=== PATIENT | male | born 1980 | race Caucasian/White ===

== ENCOUNTER 2019-04-08 07:07 | Emergency (ER) | payer SELFPAY ==
[2019-04-08] MEDS ORDERED: PREDNISONE 20 MG TABLET PO ONE (08:46)
[2019-04-08] MEDS ORDERED: IPRATROPIUM/ALBUTEROL 0.5-2.5 MG/3 ML AMPUL NEB ONE (08:46)
--- NOTE | 2019-04-08 08:48 | ER Document Report ---
ED General - General Chief Complaint: Medication Refill Stated Complaint: SHORTNESS OF BREATH Time Seen by Provider: 04/08/19 08:20 Primary Care Provider: ALEJANDRA AARON MD [ACTIVE STAFF] - Follow up in 1 week Mode of Arrival: Ambulatory Information source: Patient Notes: 38-year-old male with history of asthma COPD presents emergency department with reports of worsening symptoms for the past year since he moved back to [place]. Reports increased difficulty breathing for the past week. Patient gives history of asthma all his life. Reports he has moved around the country. He did stockpile on medication such as Advair DuoNeb albuterol inhalers. He r eports recently he ran out of albuterol nebs and his albuterol inhaler. He does have some Atrovent neb treatments. He reports it does not work as well by itself. He reports he has noticed an increase shortness of breath with any exertion. He also has had some chest pain for the past week mostly on the left side. Reports it does make him feel sweaty. Denies fever vomiting diarrhea. Denies fever vomiting diarrhea. TRAVEL OUTSIDE OF THE [place] IN LAST 30 DAYS: No - HPI Onset: Other Onset/Duration: Persistent, Worse Quality of pain: Cramping - Related Data Allergies/Adverse Reactions: clindamycin Adverse Reaction (Intermediate, Verified 04/08/19 09:25) throat burning Home Medications: albuterol Past Medical History - General Information source: Patient - Social History Smoking Status: Current Every Day Smoker Cigarette use (# per day): Yes Frequency of alcohol use: Rare Drug Abuse: Cocaine Occupation: [employer] Lives with: Family Family History: Reviewed & Not Pertinent Patient has suicidal ideation: No Patient has homicidal ideation: No Pulmonary Medical History: Reports: Hx Asthma, Hx COPD Traumatic Medical History: Reports: Hx Spine Fracture Past Surgical History: Reports: Hx Orthopedic Surgery - Immunizations Hx Diphtheria, Pertussis, Tetanus Vaccination: No Review of Systems - Review of Systems Notes: Review HPI for review of systems., All other systems negative Physical Exam - Vital signs Vitals: Temp Pulse Resp BP Pulse Ox 98.2 F 74 20 143/90 H 97 04/08/19 07:20 04/08/19 07:20 04/08/19 07:20 04/08/19 07:20 04/08/19 07:20 - General General appearance: Alert, Anxious In distress: None - HEENT Head: Normocephalic, Atraumatic Eyes: Normal Conjunctiva: Normal Extraocular movements intact: Yes Pupils: PERRL Ears: Normal External canal: Normal Tympanic membrane: Normal Mouth/Lips: Normal Mucous membranes: Moist Pharynx: Normal. No: Erythema Neck: Normal, Supple. No: Lymphadenopathy - Respiratory Respiratory status: No respiratory distress Chest status: Nontender Breath sounds: Wheezing Chest palpation: Normal - Cardiovascular Rhythm: Regular Heart sounds: Normal auscultation Murmur: No - Abdominal Inspection: Normal Distension: No distension Tenderness: Nontender - Back Back: Normal - Extremities General upper extremity: Normal ROM, Normal strength General lower extremity: Normal ROM, Normal strength, Normal weight bearing - Neurological Neuro grossly intact: Yes Cognition: Normal Orientation: AAOx4 [place]ung Coma Scale Eye Opening: Spontaneous [place]ung Coma Scale Verbal: Oriented Yung Coma Scale Motor: Obeys Commands [place] Coma Scale Total: 15 Speech: Normal Cerebellar coordination: Normal - Psychological Associated symptoms: Normal affect, Normal mood - Skin Skin Temperature: Warm Skin Moisture: Dry Skin Color: Normal Course - Re-evaluation Re-evalutation: 04/08/19 08:55 Patient presents emergency department with complaints of worsening asthma COPD for the past year increased symptoms past week. He reports he is out of his medications. Patient respiratory rate even unlabored, no retractions, some wheeze. He reports he feels short of breath just walking to the bathroom. Also complains of some chest pain across his entire chest worsens with cough. Also admits to cocaine use. Patient mentions that he has some type of [employer] insurance for his medications he is asking if we would refill them and fax the prescriptions to [employer]. Patient instructed on chest pain work-up. DuoNeb ordered with steroids. 04/08/19 13:32 Labs unremarkable. Chest x-ray shows some pneumonia. Patient reports chest pain only when he coughs no chest pain now. He was instructed on all results. Instructed on pneumonia plan of care for amoxicillin and Zithromax. He was also prescribed medications for his asthma that we faxed the prescription to his insurance company so they would send it to him. EKG is reviewed and interpreted by me. EKG shows sinus rhythm with a rate of 77 bpm, incomplete bundle branch block. No ST segment elevation or depression. No ischemic T wave inversions. [place] interval, QRS duration, QT intervals are within normal range. No old EKG available for comparison. negative troponins x 2. HEART score- 1 History- 0 ECG- 0 Age-0 Risk Factors- 1 Troponin-0 Total- 1 Patient was treated for asthma COPD wheeze cough. He received 2 neb danny atments. Sounded better upon discharge respiratory rate even unlabored no retractions. He spoke in a clear voice no shortness of breath. Denied chest pain. We faxed several prescriptions to [employer] insurance. We also prescribed several prescriptions for his pneumonia to include amoxicillin and Zithromax prednisone and an inhaler. He was instructed to discontinue use of okay cocaine. He was instructed to be very damaging to his heart. He verbalized understanding to all instructions and medications. The patient has atypical chest pain. The patient's chest pain is not suggestive of pulmonary embolus, cardiac ischemia, aortic dissection or other serious etiology. Given the extremely low risk for these diagnosis, further testing and evaluation for these possibilities does not appear to be indicated at this time. The patient has been instructed to return if the symptoms worsen or change in any way. Laboratory 04/08/19 04/08/19 04/08/19 09:38 09:38 09:38 WBC 6.9 RBC 4.89 Hgb 15.3 Hct 45.0 MCV 92 MCH 31.3 MCHC 34.1 RDW 13.3 Plt Count 214 Lymph % (Auto) 26.2 [place] % (Auto) 6.1 Eos % (Auto) 13.1 H Baso % (Auto) 0.7 Absolute Neuts (auto) 3.7 Absolute Lymphs (auto) 1.8 Absolute Monos (auto) 0.4 Absolute Eos (auto) 0.9 H Absolute Basos (auto) 0.1 Seg Neutrophils % 53.9 Sodium 141.4 Potassium 3.7 Chloride 104 Carbon Dioxide 30 Anion Gap 7 BUN 9 Creatinine 1.00 Est GFR ( Amer) > 60 Est GFR (MDRD) Non-Af > 60 Glucose 103 Calcium 9.6 Total Bilirubin 0.8 Direct Bilirubin 0.1 Neonat Total Bilirubin Not Reportable Neonat Direct Bilirubin Not Reportable Neonat Indirect Bili Not Reportable AST 21 ALT 17 Alkaline Phosphatase 60 Troponin I < 0.012 Total Protein 6.8 Albumin 4.0 Urine Color Urine Appearance Urine pH Ur Specific [place] Urine Protein Urine Glucose (UA) Urine Ketones Urine Blood Urine Nitrite Urine Bilirubin Urine Urobilinogen Ur Leukocyte Esterase Urine WBC (Auto) Urine RBC (Auto) Urine Mucus (Auto) Urine Ascorbic Acid Urine Opiates Screen Urine Methadone Screen Ur Barbiturates Screen Ur Phencyclidine Scrn Ur Amphetamines Screen U Benzodiazepines Scrn Urine Cocaine Screen U Marijuana (THC) Screen 04/08/19 04/08/19 04/08/19 09:38 09:38 12:27 WBC RBC Hgb Hct MCV MCH MCHC RDW Plt Count Lymph % (Auto) [place] % (Auto) Eos % (Auto) Baso % (Auto) Absolute Neuts (auto) Absolute Lymphs (auto) Absolute Monos (auto) Absolute Eos (auto) Absolute Basos (auto) Seg Neutrophils % Sodium Potassium Chloride Carbon Dioxide Anion Gap BUN Creatinine Est GFR ( Amer) Est GFR (MDRD) Non-Af Glucose Calcium Total Bilirubin Direct Bilirubin Neonat Total Bilirubin Neonat Direct Bilirubin Neonat Indirect Bili AST ALT Alkaline Phosphatase Troponin I < 0.012 Total Protein Albumin Urine Color YELLOW Urine Appearance SLIGHTLY-CLOUDY Urine pH 7.0 Ur Specific [place] 1.008 Urine Protein NEGATIVE Urine Glucose (UA) NEGATIVE Urine Ketones NEGATIVE Urine Blood NEGATIVE Urine Nitrite NEGATIVE Urine Bilirubin NEGATIVE Urine Urobilinogen NEGATIVE Ur Leukocyte Esterase NEGATIVE Urine WBC (Auto) 0 Urine RBC (Auto) 1 Urine Mucus (Auto) OCC Urine Ascorbic Acid NEGATIVE Urine Opiates Screen NEGATIVE Urine Methadone Screen NEGATIVE Ur Barbiturates Screen NEGATIVE Ur Phencyclidine Scrn NEGATIVE Ur Amphetamines Screen NEGATIVE U Benzodiazepines Scrn NEGATIVE Urine Cocaine Screen UNCONFIRMED POSITIVE U Marijuana (THC) Screen NEGATIVE Chest X-Ray 04/08/19 08:45 IMPRESSION: Mild ill ill-defined right middle lobe opacities, possibly pneumonia. No dense consolidation. - Vital Signs Vital signs: Temp Pulse Resp BP Pulse Ox 98.2 F 74 24 H 121/92 H 98 04/08/19 07:20 04/08/19 07:20 04/08/19 13:47 04/08/19 13:47 04/08/19 13:47 - Laboratory Result Diagrams: 04/08/19 09:38 04/08/19 09:38 Laboratory results interpreted by me: 04/08/19 09:38 Eos % (Auto) 13.1 H Absolute Eos (auto) 0.9 H - Diagnostic Test Radiology reviewed: Image reviewed, Reports reviewed - EKG Interpretation by Me EKG shows normal: Sinus rhythm Rate: Normal [place]/QRS: RBBB - Incomplete Additional EKG results interpreted by me: 04/08/19 10:[address] elevation or T wave inversion Discharge - Discharge Clinical Impression: Difficulty breathing, History of asthma, Cocaine abuse, Pneumonia Chest pain Qualifiers: Chest pain type: unspecified Qualified Code(s): R07.9 - Chest pain, unspecified Condition: Stable Disposition: HOME, SELF-CARE Instructions: Amoxicillin ([facility]), Azithromycin ([facility]), Bronchodilators ([facility]), [facility], Cocaine Abuse ([facility]), Family Physicians / Practices, Pneumonia ([facility]), Stop Smoking ([facility]), Steroid Medication Additional Instructions: *You have been evaluated for cough, wheeze, chest pain, cocaine abuse, pneumonia *Increase fluid intake as discussed *Take medication as prescribed *Quit smoking quit smoking, avoid cocaine use *Monitor your temperature, take Tylenol as indicated *Follow up with a primary care provider within 1 week for recheck and referral to auto locator as indicated *Return to ED for worsening condition, changes, needs Prescriptions: Fluticasone/Salmeterol [Advair 250-50 Diskus 14 Dose/Diskus] 1 inh IH Q12H #1 inhaler Albuterol Sulfate [Albuterol Sulfate Hfa] 8.5 gm IH ASDIR PRN #1 hfa.aer.ad PRN Reason: Amoxicillin 2 tab PO TID #30 tab Prednisone [Deltasone 20 mg Tablet] 20 mg PO DAILY #7 tablet Ipratropium/Albuterol Sulfate [Duoneb 3 ml Ampul] 3 ml NEB Q4H PRN #1 vial.neb PRN Reason: Albuterol Sulfate [Ventolin 0.083% Neb 2.5 mg/3 ml Ampul] 1 vial NEB Q4 #1 vial Azithromycin [Zithromax 250 mg Tablet] 250 mg PO DAILY #4 tablet Forms: Smoking Cessation Education Referrals: ALEJANDRA AARON MD [ACTIVE STAFF] - Follow up in 1 week
--- NOTE | 2019-04-08 09:09 | RADIOLOGY REPORT (SQ) ---
EXAM DESCRIPTION: CHEST 2 VIEWS COMPLETED DATE/TIME: 04/08/2019 8:57 am REASON FOR STUDY: chest pain shortness of breath COMPARISON: 08/05/2014 EXAM PARAMETERS: NUMBER OF VIEWS: two views TECHNIQUE: Digital Frontal and Lateral radiographic views of the chest acquired. RADIATION DOSE: NA LIMITATIONS: none FINDINGS: LUNGS AND PLEURA: Mild ill-defined right middle lobe opacities. No dense consolidation. Blunting of the bilateral costophrenic angles, likely trace effusions versus scarring. No pneumothor ax. MEDIASTINUM AND HILAR STRUCTURES: No masses or contour abnormalities. HEART AND VASCULAR STRUCTURES: Heart normal size. No evidence for failure. BONES: No acute findings. HARDWARE: None in the chest. OTHER: No other significant finding. IMPRESSION: Mild ill ill-defined right middle lobe opacities, possibly pneumonia. No dense consolid ation. TECHNICAL DOCUMENTATION: JOB ID: [id number] 2010 [employer]- All Rights Reserved Reading location - IP/workstation name: [email or web address]
[2019-04-08 09:52] LABS: ABSOLUTE BASOPHILS # (AUTO) 0.1 10^3/uL (0.0-0.2); ABSOLUTE EOSINOPHILS # (AUTO) 0.9 10^3/uL (0.0-0.6); ABSOLUTE LYMPHOCYTES (AUTO) 1.8 10^3/uL (0.5-4.7); ABSOLUTE MONOCYTES (AUTO) 0.4 10^3/uL (0.1-1.4); ABSOLUTE NEUT (AUTO) 3.7 10^3/uL (1.7-8.2); BASOPHILS % (AUTO) 0.7 % (0-2); EOSINOPHILS % (AUTO) 13.1 % (0-6); HEMOGLOBIN 15.3 g/dL (13.5-17.0); LYMPHOCYTES % (AUTO) 26.2 % (13-45); MEAN CORPUSCULAR HEMOGLOBIN 31.3 pg (27.0-33.4); MEAN CORPUSCULAR HGB CONC 34.1 g/dL (32.0-36.0); MEAN CORPUSCULAR VOLUME 92 fl (80-97); MONOCYTES % (AUTO) 6.1 % (3-13); PLATELET COUNT 214 10^3/uL (150-450); RED BLOOD COUNT 4.89 10^6/uL (4.35-5.55); RED CELL DISTRIBUTION WIDTH 13.3 % (11.5-14.0); SEGMENTED NEUTROPHILS % (AUTO) 53.9 % (42-78); TOTAL CELLS COUNTED % (AUTO) 100 %; WHITE BLOOD COUNT 6.9 10^3/uL (4.0-10.5)
[2019-04-08 10:03] LABS: APPEARANCE,URINE SLIGHTLY-CLOUDY; BILIRUBIN,URINE NEGATIVE (NEGATIVE); COLOR,URINE YELLOW; GLUCOSE, URINE NEGATIVE (NEGATIVE); KETONES,URINE NEGATIVE (NEGATIVE); LEUKOCYTE ESTERASE,URINE NEGATIVE (NEGATIVE); NITRITE,URINE NEGATIVE (NEGATIVE); PROTEIN,URINE NEGATIVE (NEGATIVE); URINE SPECIFIC GRAVITY 1.008; UROBILINOGEN,URINE NEGATIVE mg/dL (<2.0)
[2019-04-08 10:13] LABS: ALKALINE PHOSPHATASE 60 U/L (38-126); ANION GAP 7 (5-19); ASPARTATE AMINO TRANSFERASE 21 U/L (17-59); BLOOD UREA NITROGEN 9 mg/dL (7-20); CALCIUM 9.6 mg/dL (8.4-10.2); CARBON DIOXIDE 30 mmol/L (22-30); CHLORIDE 104 mmol/L (98-107); GLUCOSE 103 mg/dL (75-110); POTASSIUM 3.7 mmol/L (3.6-5.0); TOTAL PROTEIN 6.8 g/dL (6.3-8.2)
[2019-04-08 10:14] LABS: URINE AMPHETAMINES SCREEN NEGATIVE; URINE BARBITURATES SCREEN NEGATIVE; URINE BENZODIAZEPINES SCREEN NEGATIVE; URINE MARIJUANA (THC) SCREEN NEGATIVE; URINE METHADONE SCREEN NEGATIVE; URINE PHENCYCLIDINE SCREEN NEGATIVE
[2019-04-08 10:16] LABS: URINE COCAINE SCREEN UNCONFIRMED POSITIVE
[2019-04-08 10:18] LABS: BILIRUBIN,TOTAL 0.8 mg/dL (0.2-1.3)
[2019-04-08 10:20] LABS: BILIRUBIN,DIRECT 0.1 mg/dL (0.0-0.4)
[2019-04-08] MEDS ORDERED: AZITHROMYCIN 250 MG TABLET PO ONE (13:20)
[2019-04-08] MEDS ORDERED: AMOXICILLIN TRIHYDRATE 500 MG CAPSULE PO ONE (13:20)
[2019-04-08] MEDS ORDERED: ALBUTEROL SULFATE HFA (90 MCG/PUFF) 8 GM MDI (1 MDI/ER DISP) IH ONE (13:24)
--- NOTE | 2019-04-08 13:53 | EKG REPORT ---
SEVERITY:- ABNORMAL ECG - SINUS RHYTHM INCOMPLETE RIGHT BUNDLE BRANCH BLOCK : Confirmed by: Sarah Alarcon MD 08-Apr-2019 13:52:32
[2019-04-08 14:00] VITALS: BP 121/92
== END 2019-04-08 14:00 | disposition home or self-care (01) ==
LOC: ER 07:07
DX: J18.9 Pneumonia, unspecified organism (principal); F14.10 Cocaine abuse, uncomplicated; R07.9 Chest pain, unspecified; R06.00 Dyspnea, unspecified; F17.210 Nicotine dependence, cigarettes, uncomplicated; Z88.3 Allergy status to other anti-infective agents
CPT/HCPCS: 93005; 94640; 99283; 36415; 85025; 80053; 81001; 84484; 80307; 71046; 93010; J7512; J3490; J7620

== ENCOUNTER 2019-10-04 | Emergency (ER) | payer SELFPAY ==
--- NOTE | 2019-10-04 00:33 | ER Document Report ---
HPI - HPI Time Seen by Provider: 10/04/19 00:32 Context: Patient is a 39-year-old male with a history of asthma that comes to the emergency department for chief complaint of needing medication refills and intermittent exacerbations of asthma. He states he was wheezing earlier today but this resolved. He denies fever, cough, chest pain, or any other complaints. He does continue to smoke. He states he is traveling for work and he has not been able to go home yet. Patient is specifically out of his Advair, DuoNeb nebulizer, and rescue inhaler. Patient was seen here previously, had copies of the scripts faxed with forms to try to get his medications but this was declined because of the prescriptions being copies instead of the originals per patient. Past Medical History - General Information source: Patient - Social History Smoking Status: Current Every Day Smoker Smoking Education Provided: Yes - < 3min Drug Abuse: None Lives with: Alone Family History: Reviewed & Not Pertinent Pulmonary Medical History: Reports: Hx Asthma, Hx COPD Traumatic Medical History: Reports: Hx Spine Fracture Past Surgical History: Reports: Hx Orthopedic Surgery - Immunizations Hx Diphtheria, Pertussis, Tetanus Vaccination: No Vertical Provider Document - CONSTITUTIONAL General Appearance: WD/WN, No Apparent Distress - INFECTION CONTROL TRAVEL OUTSIDE OF THE [place] IN LAST 30 DAYS: No - HEENT HEENT: Atraumatic, Normal ENT Exam, Normocephalic - NECK Neck: Normal Inspection - RESPIRATORY Respiratory: Breath Sounds Normal, No Respiratory Distress - CARDIOVASCULAR Cardiovascular: Regular Rate, Regular Rhythm - GI/ABDOMEN Gastrointestinal: Abdomen Soft, Abdomen Non-Tender. negative: Abdomen Tender - BACK Back: Normal Inspection - MUSCULOSKELETAL/EXTREMETIES Musculoskeletal/Extremeties: MAEW, FROM, Non-Tender - NEURO Level of Consciousness: Awake, Alert, Appropriate - Ultrasounds of both legs Motor/Sensory: No Motor Deficit, No Sensory Deficit - DERM Integumentary: Warm, Dry, No Rash - As well. Course - Re-evaluation Re-evalutation: Patient with no current symptoms, lungs clear, no current complaints other than wheezing this morning and running out of medications. Discussed with him cessation which patient states understanding and agreement with. Provided with copy of his scripts, he needed hardcopies and was provided with these. Paperwork will be given back to medical staff who will attempt to complete patient's requests. Discussed return precautions, patient states understanding and agreement. - Vital Signs Vital signs: Temp Pulse Resp BP Pulse Ox 98.6 F 81 17 140/69 H 98 10/04/19 00:07 10/04/19 00:07 10/04/19 00:07 10/04/19 00:07 10/04/19 00:07 Discharge - Discharge Clinical Impression: Tobacco abuse, Acute effusion of left ear Asthma Qualifiers: Asthma severity: mild Asthma persistence: intermittent Asthma complication type: uncomplicated Qualified Code(s): J45.20 - Mild intermittent asthma, uncomplicated Condition: Stable Disposition: HOME, SELF-CARE Additional Instructions: Your evaluation does not show any concerning findings at this time. Use your medications as prescribed, follow-up with primary care for evaluation. Stop smoking. Return for any concerning symptoms including difficulty breathing, fever, or any other concerning symptoms. Prescriptions: Fluticasone/Salmeterol [Advair 250-50 Diskus 14 Dose/Diskus] 1 inh IH Q12H #1 inhaler Ipratropium/Albuterol Sulfate [Duoneb 3 ml Ampul] 3 ml NEB Q4H PRN #1 vial.neb PRN Reason: Albuterol Sulfate [Proair HFA Inhalation Aerosol 8.5 gm MDI] 2 puff IH Q4H PRN #1 mdi PRN Reason: Forms: Smoking Cessation Education
[2019-10-04] MEDS ORDERED: ALBUTEROL SULFATE HFA (90 MCG/PUFF) 8 GM MDI IH ONE ×2 (00:37→01:08)
[2019-10-04 02:07] VITALS: BP 127/84
== END 2019-10-04 02:04 | disposition home or self-care (01) ==
LOC: ER
DX: J45.20 Mild intermittent asthma, uncomplicated (principal); J44.9 Chronic obstructive pulmonary disease, unspecified; F17.200 Nicotine dependence, unspecified, uncomplicated
CPT/HCPCS: 94640; 99283; J3490